=== PATIENT | female | born 1970 | race Caucasian/White ===

== ENCOUNTER 2019-12-16 12:36 | Outpatient (CLI) | payer BC ==
--- NOTE | 2019-12-16 13:42 | MRI ---
Exam: MRI thoracic spine without contrast HISTORY: Back pain. Muscle spasm. Bilateral extremity numbness FINDINGS: Appropriate T1 marrow signal intensity of the thoracic vertebra. Thoracic spine vertebral b [place] height is maintained. No thoracic spine fracture. No significant STIR hyperintensity to suggest vertebral body edema or ligamentous injury. Nonspecific paraspinal T2 hyperintensities at the T4 level. Right-sided T2 hyperintensity measures 0. 6 cm in maximum dimension. Left-sided T2 hyperintensity measures 1 cm maximum dimension. Visualized mediastinum, lung parenchyma and solid organs of appropriate signal intensity The thoracic cord has a normal size and signal intensity. No cord malacia. No cord expansion. No T2 c ord signal abnormality T4-to 5: Central disc herniation with at least mild to moderate central canal stenosis. Deformity of the thoracic cord. T6-T7: Small central disc herniation. Mild central canal stenosis. T11-T12: Desiccation with moderate loss of disc space height. There is a central/right subarticular d isc herniation. Disc material encroaches upon the right neural foramen. There is mild stenosis of the thecal sac with mild deformity the right hemicord. No cord signal abnormality. Mild right neural foraminal narrowing in part due to disc material. Left neural foramen is patent Conus medullaris extends beyond the T12 level IMPRESSION: Degenerative changes of the thoracic spine as described above Transcribed Date/Time: 12/16/2019 1:47 PM
--- NOTE | 2019-12-16 14:02 | MRI ---
MRI LUMBAR SPINE NONCONTRAST: HISTORY: Low back pain, with muscle spasm. COMPARISON: None. FINDINGS: Appropriate T1 marrow signal intensity of the lumbar vertebrae. Lumbar spine vertebral body height is maintained. No fracture. No significant STIR hyperintensity to suggest vertebral body edema or ligamentous injury. Appropriate signal intensity of the visualized solid organs and paraspinal muscles. Conus medullaris terminates at the upper aspect of L1. T12-L1:Adequate disc hydration. No significant central canal stenosis or significant neural foraminal narrowing. L1-L2:Adequate disc hydration. No significant central canal stenosis or significant neural foraminal narrowing. L2-L3:Adequate disc hydration. No significant central canal stenosis or significant neural foraminal narrowing. L3-L4:Adequate disc hydration. No significant central canal stenosis or significant neural foraminal narrowing. L4-L5:Adequate disc hydration. No significant central canal stenosis or significant neural foraminal narrowing. L5-S1:Disc desiccation with mild loss of disc space height. Central disc herniation makes contact wit h the ventral thecal sac. Minimal encroachment upon the right subarticular zone. Minimal contact upon the traversing right S1 nerve root without significant mass effect or obscuration. The left suba rticular zone does not demonstrate mass effect. No significant stenosis of the thecal sac. There is bilateral facet hypertrophy with a small amount of fluid in both facet joints. Mild bilateral neural foraminal narrowing. IMPRESSION: Disc desiccation with mild loss of disc space height at L5-S1. Minimal contact upon the traversing ri ght S1 nerve root due to disc material. No significant mass effect or obscuration. Transcribed Date/Time: 12/16/2019 3:03 PM
== END 2019-12-16 12:37 | disposition home or self-care (01) ==
LOC: TBSIIMAG 12:36
PROVIDERS: ATTEND Neurological Surgery
DX: M51.34 Other intervertebral disc degeneration, thoracic region (principal); M54.5 Low back pain; M51.87 Other intervertebral disc disorders, lumbosacral region; M47.814 Spondylosis without myelopathy or radiculopathy, thoracic region
CPT/HCPCS: 72146; 72148